=== PATIENT | male | born 1950 | race Caucasian/White ===

== ENCOUNTER → 2018-07-26 | Outpatient (CLI) | payer BC | LOC: COL.RAD 07-19 07:30 | DX: Z01.818 Encounter for other preprocedural examination (principal); K90.0 Celiac disease; K55.1 Chronic vascular disorders of intestine; I70.0 Atherosclerosis of aorta; K44.9 Diaphragmatic hernia without obstruction or gangrene; Z95.828 Presence of other vascular implants and grafts | CPT/HCPCS: Q9967 ==

== ENCOUNTER 2018-09-07 09:51 | Day surgery (SDC) | payer BC ==
[2018-09-07] VITALS (13 sets, daily range): BP systolic 133–174; BP diastolic 77–100; PULSE 76–90; TEMP 98–98.1
[~2018-09-07] VITALS: Ht 177.8 cm; Wt 72.0 kg
[2018-09-07 10:43] LABS: HEMATOCRIT 37.3 % (42.0-52.0); HEMOGLOBIN 12.6 g/dl (13.5-18.0); MEAN CELL VOLUME 95 fl (80.0-100.0); MEAN CORPUSCULAR HEMOGLOBIN 32 pg (27.0-31.0); MEAN CORPUSCULAR HGB CONC 34 g/dl (33.0-37.0); MEAN PLATELET VOLUME 10.7 fl (7.4-10.4); PLATELET COUNT 206 K/mm3 (130-400); RED BLOOD COUNT 3.92 M/mm3 (4.20-5.60); REDCELL DISTRIBUTION WIDTH-CV 12.6 % (11.5-14.5)
[2018-09-07] MEDS ORDERED: JANUMET 1000 MG1 TA1 PO (10:43)
[2018-09-07] MEDS ORDERED: PACERONE100 MG PO (10:44)
[2018-09-07] MEDS ORDERED: DESYREL 50MG50 MG PO (10:44)
[2018-09-07] MEDS ORDERED: CYMBALTA 60MG60 MG PO (10:44)
[2018-09-07] MEDS ORDERED: COZAAR 50MG50 MG/TAB PO (10:45)
[2018-09-07] MEDS ORDERED: NITROSTAT0.4 MG/TAB (10:46)
[2018-09-07] MEDS ORDERED: EFFIENT10 MG PO (10:47)
[2018-09-07 10:56] LABS: PROTHROMBIN TIME 11.5 SECONDS (9.7-12.8)
[2018-09-07 10:57] LABS: CALCIUM 9.3 mg/dL (8.4-10.2); CHOLESTEROL RISK RATIO 4.7; CREATININE, serum 0.97 mg/dL (0.66-1.25); POTASSIUM 4.5 mmol/L (3.4-5.0)
--- NOTE | 2018-09-07 12:42 | NUR ---
ALL MEDS GIVEN VIA VERBAL WITH READBACK. SEE MERGE FOR ADMIN TIMES.
--- NOTE | 2018-09-07 13:45 | NUR ---
pt returned to [facility] 11 via bed from [facility], pt is awake and alert, reviewed activity with pt on lying flat and bending right leg. call light in reach, takes water, pt has safeguard on at 50cc air per [facility].
--- NOTE | 2018-09-07 14:30 | NUR ---
con't same, pt uses urinal 400cc yellow urine,
--- NOTE | 2018-09-07 16:00 | NUR ---
pt ate lunch, took call from sister, Dr Sheikh into see pt at 1615 reviewed with pt results, appt made for pt for sep 22 at 0830. con't same, bedrest till 193
--- NOTE | 2018-09-07 16:38 | NUR ---
report to Uriel RON, pt has no c/o or concerns at this time
[2018-09-07] MEDS ORDERED: LIPITOR20 MG PO (17:24)
[2018-09-07] MEDS ORDERED: RANEXA 500MG T500 MG PO (17:24)
--- NOTE | 2018-09-07 19:56 | NUR ---
PT VSS AND AX0X3 POST CARDIAC CATHETERIZATION. TOLERATING FLUID AND FOOD PO AND URINATING WITHOUT DIFFICULTY. 50CC OF AIR REMOVED FROM ANGIO-SEAL WITHOUT ISSUE AND POST REMOVAL PT AMBULATED AROUND UNIT WITH ASSISTANCE. SITE C/D/I POST AMBULATION AND GAUZE WITH TEGADERM APPLIED. DISCHARGE INSTRUCTIONS REVIEWED AND SIGNED. IV REMOVED FROM LEFT ARM. PT ASSISTED OUT VIA WHEELCHAIR WHERE FRIEND CAME TO PICK HIM UP.
== END 2018-09-07 20:01 | disposition home or self-care (01) ==
LOC: COL.CAR 09:51
PROVIDERS: Internal Medicine Cardiovascular Disease
DX: I25.10 Atherosclerotic heart disease of native coronary artery without angina pectoris (principal); R94.39 Abnormal result of other cardiovascular function study; E78.5 Hyperlipidemia, unspecified; I10 Essential (primary) hypertension; I73.9 Peripheral vascular disease, unspecified; R06.09 Other forms of dyspnea; Z95.1 Presence of aortocoronary bypass graft; Z83.3 Family history of diabetes mellitus; Z82.3 Family history of stroke; Z82.49 Family history of ischemic heart disease and other diseases of the circulatory system
CPT/HCPCS: J1200; J1644; J2250; J3010; Q9967

== ENCOUNTER 2018-12-21 08:54 | Outpatient (RCR) | payer BC ==
[~2018-12-21 08:54] MED LIST: COZAAR 50MG50 MG/TAB PO; CYMBALTA 60MG60 MG PO; DESYREL 50MG50 MG PO; EFFIENT10 MG PO; JANUMET 1000 MG1 TA1 PO; LIPITOR20 MG PO; NITROSTAT0.4 MG/TAB; PACERONE100 MG PO; RANEXA 500MG T500 MG PO
== END 2019-01-29 16:13 | disposition home or self-care (01) ==
LOC: COL.CR 08:54
DX: Z48.812 Encounter for surgical aftercare following surgery on the circulatory system (principal); Z95.5 Presence of coronary angioplasty implant and graft

== ENCOUNTER 2020-07-12 06:24 | Day surgery (SDC) | payer BC ==
[2020-07-12] VITALS (15 sets, daily range): BP systolic 115–143; BP diastolic 67–89; PULSE 73–89; TEMP 97.2–98.8
[~2020-07-12] VITALS: Ht 175.3 cm; Wt 74.1 kg
[~2020-07-12 06:24] MED LIST changes: +ASPIRIN 81M81 MG/TA2 PO; +COZAAR 25MG25 MG/TAB PO; -COZAAR 50MG50 MG/TAB PO; +CRESTOR40 MG PO; +DULCOLAX STOOL100 MG PO; +GLUCOPHAGE XR750 MG PO; +IMDUR 60MG60 MG/TAB PO; -JANUMET 1000 MG1 TA1 PO; +NATURAL IRON65 MG PO; +NITROSTAT0.4 MG/TAB PO; +PROTONIX 40MG T40 MG PO; +RANEXA1000 MG PO; +TOPROL XL 25MG25 MG PO
[2020-07-12 07:28] LABS: HEMATOCRIT 42.2 % (42.0-52.0); HEMOGLOBIN 14.2 g/dl (13.5-18.0); MEAN CELL VOLUME 98 fl (80.0-100.0); MEAN CORPUSCULAR HEMOGLOBIN 33 pg (27.0-31.0); MEAN CORPUSCULAR HGB CONC 34 g/dl (33.0-37.0); PLATELET COUNT 197 K/mm3 (130-400); PROTHROMBIN TIME 11.6 SECONDS (9.7-12.8); RED BLOOD COUNT 4.33 M/mm3 (4.20-5.60); REDCELL DISTRIBUTION WIDTH-CV 12.5 % (11.5-14.5)
[2020-07-12 07:35] LABS: CALCIUM 9.6 mg/dL (8.4-10.2); CREATININE, serum 1.24 (0.66-1.25); POTASSIUM 4.7 mmol/L (3.4-5.0)
[2020-07-12] MEDS ORDERED: IMDUR 60MG60 MG/TAB PO (07:52)
[2020-07-12] MEDS ORDERED: PROTONIX 40MG T40 MG PO (07:53)
[2020-07-12] MEDS ORDERED: RANEXA1000 MG PO (07:56)
--- NOTE | 2020-07-12 17:24 | NUR ---
Patient resting in bedside recliner at this time. Patient is plesant, alert, oriented, and independent in his room. Patient completed post cath checks, angio seal in place, gauze is CDI, no indications of hematoma or bleeding. Left wrist where cath initially attempted is swollen, no active bleeding, discoloration, or increase in size. Patient denies pain or discomfort. Telemetry in place per order. Patient denies further needs at this time. Call light within reach.
--- NOTE | 2020-07-12 19:45 | NUR ---
Initial shift assessment done- denies pain at this time- denies SOB/CP. Right femoral site dry and intact- soft-no hematoma. Pt off bedrest- sitting up in chair. VSS
[2020-07-13 04:33] VITALS: BP 142/82; PULSE 73; TEMP 97.5
--- NOTE | 2020-07-13 06:15 | NUR ---
Quiet night- right femoral site clean and dry- soft,no hematoma noted. VSS no requests.
[2020-07-13 08:00] VITALS: BP 171/97; PULSE 83; TEMP 98.1
[2020-07-13 08:43] VITALS: BP 131/68
--- NOTE | 2020-07-13 11:01 | NUR ---
Pt assessment completed and charted. medications administered per oct. pt A&O, independent in room, on room air, breathing is even and unlabored. pt denies dizziness, N/V/D, chest pain, palpitations, general pain. Pt has 22G LFA flushes w/o issue. LS cta, HRRR. Pt has Rt groin site from heart cath, covered w/ gauze and tegaderm, soft to touch, no hematoma or bleeding, dressing CDI. Pt denies pain to site. Pt has bruising to LFA and Lt wrist from IV pokes and Lt radial site attempt. Pt ambulating in halls w/ mask. No complaints at this time.
[2020-07-13 11:40] VITALS: BP 92/54; PULSE 75; TEMP 97.6
--- NOTE | 2020-07-13 15:43 | NUR ---
SW met with patient at his bedside to complete intake. Patient indicated that he currently resides in a home in [facility] with his son Suleiman [phone] as his care support and EMR. Patient indicated being indepenedent with ADL's and that he does have a DPOA. Patient reports that he does not utilize any DME and that Dr. Hung is his PCP. PAtient indicated that he would be seeing a nurse practitioner next week due to current appointment wait time with his PCP. Patient reports that he gets his medications from [facility] with no concerns. Patient declined home health services at t his time. Patient was educated about community resources.
--- NOTE | 2020-07-13 16:15 | NUR ---
Pt discharge instructions discussed and reviewed w/ patient who verbalized understanding, all questions answered, no further needs expressed. IV dc'd w/ catheter tip intact. Pt escorted out ambulatory to car.
== END 2020-07-13 16:00 | disposition home or self-care (01) ==
LOC: COL.CAR 06:24 → MEDICAL 10:36 → COL.CAR 07-13 16:00
PROVIDERS: Internal Medicine Cardiovascular Disease
DX: I25.119 Atherosclerotic heart disease of native coronary artery with unspecified angina pectoris (principal); I73.9 Peripheral vascular disease, unspecified; I10 Essential (primary) hypertension; E78.5 Hyperlipidemia, unspecified; Z79.82 Long term (current) use of aspirin; Z95.1 Presence of aortocoronary bypass graft
CPT/HCPCS: OP; C9600; J1644; J2250; J3010; J7030; Q9967

== ENCOUNTER 2020-07-31 07:10 | Emergency (ER) | payer BC ==
[~2020-07-31] VITALS: Ht 175.3 cm; Wt 70.5 kg
[2020-07-31 07:15] VITALS: TEMP 97.8
[2020-07-31 07:36] LABS: BASO % 0.4 % (0.0-2.0); EOS # 0.1 (0.0-0.7); GRAN # 6.1 (1.4-6.5); GRAN % 76.7 % (42.2-75.2); HEMOGLOBIN 12.6 g/dl (13.5-18.0); LYMPH # 1.3 (1.2-3.4); LYMPH % 15.8 % (20.0-51.0); MEAN CELL VOLUME 99 fl (80.0-100.0); MEAN CORPUSCULAR HEMOGLOBIN 33 pg (27.0-31.0); MEAN CORPUSCULAR HGB CONC 33 g/dl (33.0-37.0); MEAN PLATELET VOLUME 10.6 fl (7.4-10.4); MONO # 0.5 (0.1-0.6); MONO % 5.7 % (1.7-9.3); PLATELET COUNT 155 K/mm3 (130-400); RED BLOOD COUNT 3.83 M/mm3 (4.20-5.60); REDCELL DISTRIBUTION WIDTH-CV 12.9 % (11.5-14.5)
[2020-07-31 07:43] LABS: INR 1.1 (0.8-3.0); PROTHROMBIN TIME 11.8 SECONDS (9.7-12.8)
[2020-07-31 07:45] LABS: ALANINE AMINOTRANSFERASE 74 U/L (4-49); ALBUMIN 3.6 gm/dL (3.5-5.0); ALKALINE PHOSPHATASE 102 U/L (50-136); ANION GAP 8 mmol/L (7-16); AST,SGOT 47 U/L (15-37); BILIRUBIN,TOTAL 0.5 mg/dL (0.0-1.0); BLOOD UREA NITROGEN 16 mg/dL (9-20); CARBON DIOXIDE 25 mmol/L (22-30); CHLORIDE 104 mmol/L (98-107); GLUCOSE 165 mg/dL (74-106); POTASSIUM 4.4 mmol/L (3.4-5.0); SODIUM 137 mmol/L (137-145); TOTAL PROTEIN 6.2 gm/dL (6.4-8.2)
[2020-07-31 07:46] LABS: PARTIAL THROMBOPLASTIN TIME 36.6 SECONDS (26.0-37.0)
[2020-07-31 07:57] LABS: TROPONIN-I < 0.012 ng/mL (0.000-0.035)
[2020-07-31 11:00] VITALS: BP 120/71; PULSE 84
[2020-07-31] MEDS ORDERED: LASIX 20MG TABL20 MG PO (11:57)
== END 2020-07-31 11:10 | disposition home or self-care (01) ==
LOC: COL.ER 07:10
PROVIDERS: Family Medicine
DX: R07.89 Other chest pain (principal); I25.10 Atherosclerotic heart disease of native coronary artery without angina pectoris; I10 Essential (primary) hypertension; E78.5 Hyperlipidemia, unspecified; F41.9 Anxiety disorder, unspecified; F32.9 Major depressive disorder, single episode, unspecified; E11.9 Type 2 diabetes mellitus without complications; Z79.01 Long term (current) use of anticoagulants; Z95.9 Presence of cardiac and vascular implant and graft, unspecified; Z79.84 Long term (current) use of oral hypoglycemic drugs; Z79.82 Long term (current) use of aspirin
CPT/HCPCS: J2270

== ENCOUNTER → 2020-08-21 | Outpatient (CLI) | payer BC ==
[~2020-08-21] MED LIST changes: +LASIX 20MG TABL20 MG PO
== END ==
LOC: COL.RAD 12:11
DX: I20.9 Angina pectoris, unspecified (principal); N20.0 Calculus of kidney; I70.0 Atherosclerosis of aorta
CPT/HCPCS: Q9967